=== PATIENT | male | born 1965 | race American Indian/Alaskan Native ===

== ENCOUNTER 2019-04-07 12:18 | Emergency (ER) | payer OTHER ==
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
[2019-04-07] MEDS ORDERED: FLEXERIL PO ONE (15:10)
[2019-04-07] MEDS ORDERED: NORCO 5/325 PO ONE (15:10)
[2019-04-07 16:50] VITALS: BP 154/95
== END 2019-04-07 17:06 | disposition home or self-care (01) ==
LOC: ED 12:18
DX: S39.012A Strain of muscle, fascia and tendon of lower back, initial encounter (principal); S16.1XXA Strain of muscle, fascia and tendon at neck level, initial encounter; R51 Headache; V89.2XXA Person injured in unspecified motor-vehicle accident, traffic, initial encounter; Y93.89 Activity, other specified; Y92.410 Unspecified street and highway as the place of occurrence of the external cause; Y99.8 Other external cause status
CPT/HCPCS: 70450; 72040; 72070; 72100

== ENCOUNTER 2021-12-07 11:02 | Outpatient (CLI) | payer OTHER ==
--- NOTE | 2021-12-07 13:38 | Cat Scan Report ---
CT CHEST WITHOUT CONTRAST INDICATION / CLINICAL INFORMATION: Z01.89 LUNG NODULE . TECHNIQUE: Axial CT images were obtained through the chest without contrast. All CT scans at this [facility] ation are performed using CT dose reduction for ALARA by means of automated exposure control. COMPARISON: None available. FINDINGS: HEART: No significant abnormality. CORONARY ARTERY CALCIFICATION: None. THORACIC AORTA: No significant abnormality. MEDIASTINUM / ZULEIMA: No significant abnormality. PLEURA: No pleural effusion. No pneumothorax. LUNGS: No acute air space or interstitial disease. Multiple lucencies scattered throughout the periph suzette of the bilateral upper lobes. There is mild atelectasis in the bilateral, right greater than left lung bases. No concerning pulmonary nodule or focal consolidation or pulmonary mass. ADDITIONAL FINDINGS: None. UPPER ABDOMEN: No significant abnormality. SKELETAL SYSTEM: No significant abnormality. IMPRESSION: 1. No concerning pulmonary nodule, focal consolidation or pulmonary mass. 2. Multiple peripheral lucencies involving the bilateral upper lobes, which may represent sequela of emphysema versus bullous disease. Signer Name: Marvin Rodriguez DO Signed: 12/07/2021 1:34 PM Workstation Name: [id number]
== END 2021-12-07 11:03 | disposition home or self-care (01) ==
LOC: CT 11:02
PROVIDERS: ATTEND Family Medicine
DX: Z01.89 Encounter for other specified special examinations (principal); J98.11 Atelectasis
CPT/HCPCS: 71250